=== PATIENT | male | born 1990 | race Caucasian/White ===

== ENCOUNTER 2024-11-28 13:22 | Emergency (ER) | payer SELFPAY | END 2024-11-28 15:57 | disposition home or self-care (01) | LOC: MW.ED 13:22 | DX: S60.222A Contusion of left hand, initial encounter (principal); L03.114 Cellulitis of left upper limb; E10.9 Type 1 diabetes mellitus without complications; Z79.4 Long term (current) use of insulin; Z79.899 Other long term (current) drug therapy; W22.8XXA Striking against or struck by other objects, initial encounter | CPT/HCPCS: 73130-26-LT; 73130-LT; 99283 ==